=== PATIENT | female | born 1985 | race Asian ===

== ENCOUNTER 2016-08-27 10:38 | Emergency (ER) | payer BC ==
[~2016-08-27] VITALS: Ht 170.2 cm; Wt 60.0 kg
[2016-08-27] MEDS ORDERED: MAALOX/HYOSCYAMINE/LIDOCAINE 45 ML BOTTLE PO ONE (11:30)
[2016-08-27] MEDS ORDERED: MAALOX/HYOSCYAMINE/LIDOCAINE 45 ML BOTTLE ONE (12:04)
[2016-08-27 12:14] LABS: BLOOD UREA NITROGEN 9 mg/dL (7-18)
[2016-08-27 12:21] LABS: IS PT STATUS REG ER OR PRE ER? YES
[2016-08-27 13:23] VITALS: BP 117/61
== END 2016-08-27 13:25 | disposition home or self-care (01) ==
LOC: ED 11:04
DX: R07.2 Precordial pain (principal); R11.2 Nausea with vomiting, unspecified
CPT/HCPCS: 36415; 71010; 80048; 82040; 84484; 85025; 85379; 93005; 99285